=== PATIENT | female | born 1990 | race Two or more races ===

== ENCOUNTER 2019-04-15 17:20 | Inpatient (IN) | payer MEDICAID ==
[~2019-04-15] VITALS: Ht 165.1 cm; Wt 58.7 kg
[2019-04-15 17:30] VITALS: BP 122/76
[2019-04-15 17:48] LABS: HEMATOCRIT 38.7 % (37.0-47.0); HEMOGLOBIN 13.1 G/DL (12.0-16.0); MEAN CORPUSCULAR VOLUME 85 FL (80-99); PLATELET COUNT 179 K/UL (150-450); RED BLOOD COUNT 4.56 M/UL (4.20-5.40); WHITE BLOOD COUNT 17.7 K/UL (4.8-10.8)
[2019-04-15 18:38] LABS: APPEARANCE,URINE SLIGHTLY CLOUDY; COLOR,URINE PALE YELLOW
[2019-04-15 18:39] LABS: BILIRUBIN, URINE NEGATIVE (NEGATIVE); GLUCOSE, URINE (UA) NEGATIVE (NEGATIVE); KETONES,URINE 2+ (NEGATIVE); LEUKOCYTE ESTERASE ,URINE 1+ (NEGATIVE); NITRITE,URINE NEGATIVE (NEGATIVE); PROTEIN,URINE NEGATIVE (NEGATIVE); UROBILINOGEN,URINE NORMAL MG/DL (0.0-1.0)
[2019-04-15] MEDS ORDERED: cefTRIAXone 1 GM in NS 55 ML IVPB ONE (19:00)
[2019-04-15] MEDS ORDERED: Morphine Sulfate 2mg/ml Inj(IV/IM USE ONLY) IVP ONE (19:00)
[2019-04-15 19:13] LABS: ANION GAP 12 mmol/L (5-15); BLOOD UREA NITROGEN 10 mg/dL (7-18); CARBON DIOXIDE 24 MMOL/L (21-32); CHLORIDE 102 MMOL/L (98-107); CREATININE 0.8 MG/DL (0.55-1.30); POTASSIUM 3.5 MMOL/L (3.5-5.1); SODIUM 138 MMOL/L (136-145)
[2019-04-15 19:18] LABS: ALANINE AMINOTRANSFERASE 14 U/L (12-78); ALBUMIN 3.9 G/DL (3.4-5.0); ALKALINE PHOSPHATASE 63 U/L (46-116); ASPARTATE AMINO TRANSFERASE 15 U/L (15-37); BILIRUBIN,TOTAL 0.4 MG/DL (0.2-1.0)
--- NOTE | 2019-04-15 19:57 | Diagnostic Imaging Report ---
Clinical Indication: Abdominal pain Technique: No oral contrast utilized, per emergency room physician request IV administration nonionic contrast. Venous phase spiral acquisition obtained through the abdomen and pelvis. Multiplanar reconstructions were generated. Total dose length product 241 mGycm. CTDIvol(s) 4 mGy. Dose reduction achieved using automated exposure control Comparison: none Findings: There is patchy heterogeneous attenuation of the right kidney, with multiple peripheral wedge-shaped areas of low-attenuation present. Left renal attenuation appears unremarkable. No renal or ureteral calculi, hydronephrosis, or hydroureter. The bladder is nondistended. Demonstrates equivocal minimal wall thickening. No definite renal parenchymal mass or cyst demonstrated, difficult to completely exclude on the right due to the heterogeneous parenchymal attenuation. The liver demonstrates a subcentimeter low-attenuation lesion in segment 7 which is too small to characterize, is otherwise unremarkable. The gallbladder, bile ducts, pancreas, spleen, adrenals are unremarkable. No retroperitoneal or mesenteric mass or adenopathy. Normal uterus and ovaries. No pelvic mass or adenopathy. The appendix is not definitely identified, but no findings to suggest acute appendicitis are evident. No evidence of colonic diverticulosis or diverticulitis. There is trace free pelvic fluid. No small bowel distention. Distal esophagus, stomach, duodenum are unremarkable. The included lung bases are clear. The bones are unremarkable. Impression: Patchy heterogeneous attenuation of the right kidney, highly suggestive of nephritis, in concordance with stated clinical history No other acute or significant abnormality This agrees with the preliminary interpretation provided overnight by [facility] teleradiology service. The CT scanner at [facility] is accredited by the [employer] and the scans are performed using protocols designed to limit radiation exposure to as low as reasonably achievable to attain images of sufficient resolution adequate for diagnostic evaluation.
[2019-04-15 20:15] VITALS: BP 117/70
[2019-04-15] MEDS ORDERED: Ciprofloxacin 500mg tab ORAL ONE (20:15)
[2019-04-15] MEDS ORDERED: metroNIDAZOLE 500mg tab ORAL ONE (20:15)
--- NOTE | 2019-04-15 21:13 | Emergency Room Report ---
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 Denies any urinary frequency and urgency. Denies blood in urine. Denies at this time. Denies diffuse abdominal pain. Has not taken medication for symptom relief. Vitals appear to be stable. CVA tenderness noted in right flank. Denies chest pain, shortness of breath, palpitation, headache and dizziness. Denies recent travel. Denies vaginal discharge. (Escobar Zhou) Allergies: Coded Allergies: No Known Allergies (Unverified , 04/15/19) Patient History Past Medical History: see triage record Past Surgical History: none Pertinent Family History: none Last Menstrual Period: 03/23/2019 Now: No Immunizations: UTD Reviewed Nursing Documentation: PMH: Agreed; PSxH: Agreed (Escobar Zhou) Nursing Documentation-PMH Past Medical History: No History, Except For (Escobar Zhou) Review of Systems All Other Systems: negative except mentioned in HPI (Escobar Zhou) Physical Exam Vital Signs Date Time Temp Pulse Resp B/P (MAP) Pulse Ox O2 Delivery O2 Flow Rate FiO2 04/15/19 17:26 99.0 113 20 122/76 (91) 100 Room Air Sp02 EP Interpretation: reviewed, normal General Appearance: alert, GCS 15, non-toxic, mild distress Head: normocephalic, atraumatic Eyes: bilateral eye normal inspection, bilateral eye PERRL ENT: hearing grossly normal, normal pharynx, no angioedema, normal voice Neck: full range of motion, supple/symm/no masses Respiratory: chest non-tender, lungs clear, normal breath sounds, no rhonchi, no wheezing, speaking full sentences Cardiovascular #1: regular rate, rhythm, no edema, no murmur, normal capillary refill Gastrointestinal: non tender, soft, no mass, no peritonitis, no bruit, non- distended, no guarding, no pulsatile mass, no rebound Rectal: deferred Genitourinary: CVA tenderness (R) Musculoskeletal: back normal, normal range of motion, no calf tenderness, gait/ station normal, non-tender Neurologic: alert, motor strength/tone normal, oriented x3, sensory intact, responsive, speech normal Psychiatric: judgement/insight normal, memory normal, mood/affect normal, no suicidal/homicidal ideation Skin: no rash Lymphatic: no adenopathy (Escobar Zhou) Medical Decision Making PA Attestation All my diagnosis and treatment plans were reviewed ad discussed with my supervising physician Dr. 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 Denies any urinary frequency and urgency. Denies blood in urine. Denies at this time. Denies diffuse abdominal pain. Has not taken medication for symptom relief. Vitals appear to be stable. CVA tenderness noted in right flank. Denies chest pain, shortness of breath, palpitation, headache and dizziness. Denies recent travel. Denies vaginal discharge. Ddx considered but are not limited to: UTI, pyelonephritis, urinary incontinence , prolapsed bladder Vital signs: are WNL, pt. is afebrile H&PE are most consistent with: Symptomatic pyelonephritis ORDERS: UA, urine cx, urine , CBC, CMP, CT abdomen pelvis with contrast ED INTERVENTIONS: NS bolus, Zofran, ceftriaxone, Toradol Patient was admitted with diagnosis of symptomatic pyelonephritis to under supervision of : Roberto Carlos pt stable at time of admission (Escobar Zhou) ER Course patient seen and evaluated by ALCIDES Zhou. I agree with her workup and assessment. patient will need admission. I endorsed patient to admitting physician. (Denilson Azevedo MD) CT/MRI/US Diagnostic Results CT/MRI/US Diagnostic Results : Imaging Test Ordered: CT abdomen pelvis with contrast Impression There is heterogeneous enhancement of the right kidney with a slightly striated nephrogram. Findings are worrisome for pyelonephritis. There are no drainable perinephric fluid collections. Ill-defined low-density areas seen within the renal parenchyma may reflect phlegmonous changes (there is no discrete intrarenal abscess at this time). There is no evidence of hydronephrosis. There is no evidence of small or large bowel obstruction. There is a normal appendix. There is no acute bony abnormality. (Escobar Zhou) Last Vital Signs Date Time Temp Pulse Resp B/P (MAP) Pulse Ox O2 Delivery O2 Flow Rate FiO2 04/15/19 19:30 99.0 04/15/19 17:30 100 20 122/76 100 Room Air (Escobar Zhou) Disposition: ADMITTED INPATIENT Condition: Stable Escobar Zhou Apr 15, 2019 21:13 Denilson Azevedo MD Apr 15, 2019 22:01
[2019-04-15 22:45] VITALS: BP 111/74
[2019-04-16] VITALS (7 sets, daily range): BP systolic 94–109; BP diastolic 55–73
[2019-04-16] MEDS ORDERED: Morphine Sulfate 2mg/ml Inj(IV/IM USE ONLY) IVP PRN (01:30)
[2019-04-16] MEDS: Morphine Sulfate 2mg/ml Inj(IV/IM USE ONLY) IVP PRN ×2 (09:38→16:21)
--- NOTE | 2019-04-16 15:08 | History & Physical ---
History of Present Illness General Reason for Hospitalization: General Complaint Present Illness Allergies: Coded Allergies: No Known Allergies (Unverified , 04/15/19) Medication History No Active Prescriptions or Reported Meds Patient History Healthcare decision maker Resuscitation status Full Code Advanced Directive on File No Review of Systems Review of Symptoms General ROS: no weight loss or fever Psychological ROS: no depression or mood changes, no memory loss Ophthalmic ROS: no visual changes or eye irritation ENT ROS: no nasal congestion, hearing loss, dizziness Allergy and Immunology ROS: no allergic symptoms or urticaria Hematological and Lymphatic ROS: no swollen glands, unusual bleeding or bruising Endocrine ROS: no polyuria, polydipsia, weight changes, temperature intolerance Respiratory ROS: no cough, shortness of breath, or wheezing Cardiovascular ROS: no chest pain or dyspnea on exertion Gastrointestinal ROS: denies abdominal pain, bright red blood in stool. Musculoskeletal ROS: no myalgias or arthralgias Neurological ROS: no TIA or stroke symptoms Dermatological ROS: no new or changing skin lesions, rashes or pruritis Physical Exam Physical Exam General appearance: alert, cooperative, no distress, appears stated age Head: Normocephalic, without obvious abnormality, atraumatic Eyes: conjunctivae/corneas clear. PERRL, EOM's intact. Fundi benign Throat: Lips, mucosa, and tongue normal. Teeth and gums normal Neck: supple, symmetrical, trachea midline, no adenopathy, thyroid: not enlarged, symmetric, no tenderness/mass/nodules, no carotid bruit and no JVD Lungs: clear to auscultation bilaterally Heart: regular rate and rhythm, S1, S2 normal, no murmur, click, rub or gallop Abdomen: soft, non-tender. Bowel sounds normal. No masses, no organomegaly Extremities: extremities normal, atraumatic, no cyanosis or edema Pulses: 2+ and symmetric Skin: Skin color, texture, turgor normal. No rashes or lesions Neurologic: Grossly normal Last 24 Hour Vital Signs Date Time Temp Pulse Resp B/P (MAP) Pulse Ox O2 Delivery O2 Flow Rate FiO2 04/16/19 12:00 99.2 93 18 109/73 (85) 100 04/16/19 09:00 Room Air 04/16/19 08:00 98.7 94 18 106/71 (83) 100 04/16/19 04:00 98.6 77 17 97/55 (69) 96 04/16/19 02:16 98.6 04/16/19 01:34 99.3 101 102/64 (77) 04/16/19 00:00 102.5 110 17 94/59 (71) 97 04/15/19 23:47 Room Air 04/15/19 23:20 98.4 92 16 111/74 99 Room Air 04/15/19 22:45 98.4 92 16 111/74 99 Room Air 04/15/19 20:15 98.4 96 16 117/70 100 Room Air 04/15/19 19:30 99.0 04/15/19 17:30 99.0 100 20 122/76 100 Room Air 04/15/19 17:30 113 20 Room Air 04/15/19 17:26 99.0 113 20 122/76 (91) 100 Room Air Intake and Output 04/15/19 04/16/19 19:00 07:00 # Voids 2 Laboratory Tests Test 04/15/19 17:25 04/15/19 17:33 Urine Color Pale yellow Urine Appearance Slightly cloudy Urine pH 7.0 (4.5-8.0) Urine Specific [place] 1.001 (1.005-1.035) Urine Protein Negative (NEGATIVE) Urine Glucose (UA) Negative (NEGATIVE) Urine Ketones 2+ (NEGATIVE) H Urine Blood 2+ (NEGATIVE) H Urine Nitrite Negative (NEGATIVE) Urine Bilirubin Negative (NEGATIVE) Urine Urobilinogen Normal MG/DL (0.0-1.0) Urine Leukocyte Esterase 1+ (NEGATIVE) H Urine RBC 5-10 /HPF (0 - 2) H Urine WBC 10-15 /HPF (0 - 2) H Urine Squamous Epithelial Cells Moderate /LPF (NONE/OCC) H Urine Bacteria Few /HPF (NONE) Urine HCG, Qualitative Negative (NEGATIVE) Lactic Acid Level 0.70 mmol/L (0.4-2.0) White Blood Count 17.7 K/UL (4.8-10.8) H Red Blood Count 4.56 M/UL (4.20-5.40) Hemoglobin 13.1 G/DL (12.0-16.0) Hematocrit 38.7 % (37.0-47.0) Mean Corpuscular Volume 85 FL (80-99) Mean Corpuscular Hemoglobin 28.8 PG (27.0-31.0) Mean Corpuscular Hemoglobin Concent 34.0 G/DL (32.0-36.0) Red Cell Distribution Width 12.0 % (11.6-14.8) Platelet Count 179 K/UL (150-450) Mean Platelet Volume 8.6 FL (6.5-10.1) Neutrophils (%) (Auto) % (45.0-75.0) Lymphocytes (%) (Auto) % (20.0-45.0) Monocytes (%) (Auto) % (1.0-10.0) Eosinophils (%) (Auto) % (0.0-3.0) Basophils (%) (Auto) % (0.0-2.0) Differential Total Cells Counted 100 Neutrophils % (Manual) 88 % (45-75) H Lymphocytes % (Manual) 7 % (20-45) L Monocytes % (Manual) 4 % (1-10) Eosinophils % (Manual) 1 % (0-3) Basophils % (Manual) 0 % (0-2) Band Neutrophils 0 % (0-8) Platelet Estimate Adequate Platelet Morphology Normal Red Blood Cell Morphology Normal Sodium Level 138 MMOL/L (136-145) Potassium Level 3.5 MMOL/L (3.5-5.1) Chloride Level 102 MMOL/L (98-107) Carbon Dioxide Level 24 MMOL/L (21-32) Anion Gap 12 mmol/L (5-15) Blood Urea Nitrogen 10 mg/dL (7-18) Creatinine 0.8 MG/DL (0.55-1.30) Estimat Glomerular Filtration Rate > 60 mL/min (>60) Glucose Level 111 MG/DL (74-106) H Calcium Level 9.0 MG/DL (8.5-10.1) Total Bilirubin 0.4 MG/DL (0.2-1.0) Aspartate Amino Transf (AST/SGOT) 15 U/L (15-37) Alanine Aminotransferase (ALT/SGPT) 14 U/L (12-78) Alkaline Phosphatase 63 U/L (46-116) Total Protein 7.8 G/DL (6.4-8.2) Albumin 3.9 G/DL (3.4-5.0) Globulin 3.9 g/dL Albumin/Globulin Ratio 1.0 (1.0-2.7) Microbiology Date/Time Source Procedure Growth Status 2/18/20 17:25 Urine,Clean Catch Urine Culture - Preliminary Resulted Height (Feet): 5 Height (Inches): 5.00 Weight (Pounds): 129 Medications Current Medications Medications (Trade) Dose Ordered Sig/Hussain Route PRN Reason Start Time Stop Time Status Last Admin Dose Admin Acetaminophen (Tylenol) 650 mg Q4H PRN ORAL Mild Pain/Temp > 100.5 04/16/19 01:30 05/16/19 01:29 04/16/19 01:46 Ceftriaxone Sodium 1 gm/ Dextrose 55 ml @ 110 mls/hr Q24H IVPB 04/16/19 16:00 04/23/19 15:59 Morphine Sulfate (Morphine Sulfate) 2 mg Q6H PRN IVP For Pain 04/16/19 09:30 04/23/19 01:29 04/16/19 09:38 Ondansetron HCl (Zofran) 4 mg Q6H PRN IVP Nausea & Vomiting 04/16/19 01:30 05/16/19 01:29 04/16/19 01:46 Sodium Chloride 1,000 ml @ 70 mls/hr [id number] IV 04/16/19 01:00 05/16/19 00:59 04/16/19 01:00 Assessment/Plan Assessment/Plan: IM H&P Covering MD: Robyn Guevara RFA: Pyelonephritis DOS: 04/16/19 HPI 29-year-old female with 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 Denies any urinary frequency and urgency. Denies blood in urine. Denies at this time. Denies diffuse abdominal pain. Has not taken medication for symptom relief. Vitals appear to be stable. CVA tenderness noted in right flank. Denies chest pain, shortness of breath, palpitation, headache and dizziness. Denies recent travel. Denies vaginal discharge. Allergies: Coded Allergies: No Known Allergies (Unverified , 04/15/19) Patient History Past Medical History: see triage record Past Surgical History: none Pertinent Family History: none Last Menstrual Period: 03/23/2019 Now: No Immunizations: UTD Reviewed Nursing Documentation: PMH: Agreed; PSxH: Agreed ROS (review of systems): Constitutional: No fever, no chills, no night sweats, no fatigue Skin: No rashes, lumps, itchiness, dryness HEENT: No ELL[place], ear ache, visual changes, double vision, nosebleeds Breasts: No lumps, pain, discharge Pulmonary: No cough, sputum, shortness of breath, coughing up blood Cardiovascular: No chest pain, tightness, palpitations, syncope, PND GI: No nausea, vomiting, diarrhea, melena, hematochezia, change in appetite, : No dysuria, frequency, urgency, urinary incontinence, foamy urine Musculoskeletal: No joint swelling or muscle pain, trauma, back pain Neurologic: No dizziness, fainting, seizures, changes in smell or taste Psychiatric: No nervousness, stress, or depression, anxiety, hallucinations Endocrine: No weight change, heat or cold intolerance, tremor, insomnia Physical Exam: Vitals: reviewed General: NAD HEENT: nc, at Neck: supple Chest: clear breath sounds bilaterally Cardiovascular: RRR, no s3, s4 Abdomen: soft, nontender, nd Extremities: no cce, normal range of motion Neuro: alert and oriented Right flank pain++ Labs: noted Imaging: reviewed A/R # Pyelonephritis symptomatic --> as per id, abx # Leukocytosis likely due to infection --> on ivf and abx # Sepsis hx with recent hospitalization 1 year ago here complaining of 3 days of right flank pain, fever and chills, nausea. Denies any urinary frequency and urgen --> as per id care, on ivf as well # Dehydration --> goal of euvolemia The timing of this note does not necessarily reflect the time of the patient was seen. MIPS Hospital declaration INPATIENT level of care is warranted for this patient because patient is a 89 year old with who presents with suspicion of . I have a high level of concern because . Patient is at high risk for . Plan of care/treatment include . Patient care is expected to be greater than 2 midnights. OBSERVATION level of care is warranted for this patient. Patient is a 89 year old with who presents with . Patient will be admitted for 1 midnight, but if additional night(s) is/are necessary, patient will be converted to inpatient status for the entire hospitalization Disposition: Once the patient is stable to leave the hospital, I anticipate the patient will likely be discharged to the following environment: Estimated discharge date: I spent 70 minutes on this patient's case, and minutes was dedicated to counseling and/or care coordination. MIPS (Merit-based Incentive Payment System) Applicable CPT: 48663, 76267 CHECK ALL THAT ARE MET: Measure #5 (CHF): All ages. Prescribe SABINE/ARB upon discharge for patients with left ventricular systolic dysfunction. If not, the reason is clearly documented in the medical chart. Measure #8 (CHF): All ages. Prescribe a beta [place] upon discharge for patients with left ventricular systolic dysfunction. If not, the reason is clearly documented in the medical chart. Measure #47 Advance care plan or surrogate decision maker documented in the medical record. Measure #130 The provider has documented, updated, or reviewed the patients current medication list and has documented it in the patients note. Measure #374 (All): Send report to referring provider. Measure #407(Sepsis due to MSSA bacteremia): Age 18+ Patient treated with a beta-lactam antibiotic (Nafcillin, Oxacillin or Cefazolin) as definitive therapy. MEDICAL COMPLEXITY High complexity medical decision making (need 2/3 categories) Problem - need 4 points Acute/new problem with new plan for workup (4 points, 1 max) Acute/new problem without additional workup (3 points, 1 max) Unstable chronic problem actively being managed (2 point each, 2 max) Stable chronic problem actively being managed (1 point each, 2 max) Self-limited/transient process (constipation, muscle ache, etc) (1 point each , 2 max) Data - need 4 points Reviewed labs/imaging studies (1 points, 2 max) Independent review of imaging (EKG, xrays, etc) (2 points, 2 max) Discussed case with consult/other MD/RN (2 points, 2 max) High Risk - qualify if have one of the following: Severe exacerbation of acute problem, acute mental status change, IV narcotics , monitoring drug levels (vancomycin, INR, tacrolimus etc) Jon Strong MD Apr 16, 2019 15:08
[2019-04-16] MEDS: cefTRIAXone 1 GM in D5W 55 ML IVPB SCH (16:20)
--- NOTE | 2019-04-16 21:45 | Consultation ---
DATE OF CONSULTATION: 04/16/2019 INFECTIOUS DISEASE CONSULTATION CONSULTING PHYSICIAN: Dada Mahoney M.D. PRIMARY ATTENDING PHYSICIAN: Robyn Zamora M.D. REASON FOR CONSULTATION: Pyelonephritis and sepsis. HISTORY OF PRESENT ILLNESS: This is a 29-year-old female admitted yesterday from home complaining of fever, chills, and right flank pain for 3 days. The patient had history of pyelonephritis one year ago. The patient was found to have fever of 102.5 in the hospital and had leukocytosis of 17.7. MEDICATIONS: Getting morphine, ciprofloxacin, Tylenol, and Zofran. Got a dose of ceftriaxone and sodium chloride. ALLERGIES: No known drug allergies. SOCIAL HISTORY: Single. Has a 4-year-old boy. Social drinking. No drug abuse. Nonsmoker. REVIEW OF SYSTEMS: As history of present illness, fever, chills and right flank pain. Has no coughing and no lower urinary symptoms. PHYSICAL EXAMINATION: VITAL SIGNS: Temperature 99.2, pulse 93, and blood pressure 109/73. GENERAL APPEARANCE: No acute distress. HEAD AND NECK: [place] conjunctiva. HEART: Normal rate. LUNGS: Clear. ABDOMEN: Soft. Right flank tenderness. EXTREMITIES: No edema. NEUROLOGIC: Awake, alert, and oriented x3. LABORATORY AND DIAGNOSTIC DATA: WBC 17.7, hemoglobin 13.1, hematocrit 38.7, and platelets is 179,000. Sodium 138, potassium 3.5, chloride 102, bicarbonate 24, BUN 10, creatinine 0.8, and glucose is 111. Normal LFT. UA showed leukocyte esterase 1+ and wbc [address] scan of the abdomen and pelvis showed patchy heterogenous attenuation of right kidney highly suggestive of nephritis. IMPRESSION: 1. Sepsis with leukocytosis, fever, and brief tachycardia. 2. Pyelonephritis. RECOMMENDATIONS: Discontinue Cipro and start on ceftriaxone. We will follow up the cultures. At the end of my exam, I thank Dr. Zamora for involving me in the care of this patient. Dada Mahoney M.D. DR: TRI JOB#: [id number] CC:
[2019-04-17] VITALS: BP 102/66
[2019-04-17 04:00] VITALS: BP 103/60
[2019-04-17 06:41] LABS: BASOPHILS % (AUTO) 0.2 % (0.0-2.0); EOSINOPHILS % (AUTO) 0.5 % (0.0-3.0); HEMATOCRIT 32.5 % (37.0-47.0); HEMOGLOBIN 11.3 G/DL (12.0-16.0); LYMPHOCYTES % (AUTO) 10.9 % (20.0-45.0); MEAN CORPUSCULAR VOLUME 86 FL (80-99); MONOCYTES % (AUTO) 7.7 % (1.0-10.0); NEUTROPHILS % (AUTO) 80.6 % (45.0-75.0); PLATELET COUNT 154 K/UL (150-450); RED CELL DISTRIBUTION WIDTH 12.2 % (11.6-14.8); WHITE BLOOD COUNT 13.9 K/UL (4.8-10.8)
[2019-04-17 06:58] LABS: ANION GAP 11 mmol/L (5-15); BLOOD UREA NITROGEN 8 mg/dL (7-18); CALCIUM 8.3 MG/DL (8.5-10.1); CARBON DIOXIDE 25 MMOL/L (21-32); CHLORIDE 105 MMOL/L (98-107); CREATININE 0.9 MG/DL (0.55-1.30); POTASSIUM 3.7 MMOL/L (3.5-5.1); SODIUM 141 MMOL/L (136-145)
[2019-04-17 08:00] VITALS: BP 107/62
--- NOTE | 2019-04-17 10:46 | Infectious Diseases Prog Note ---
Assessment/Plan Assessment/Plan IMPRESSION: 1. Sepsis,improving leukocytosis 2. Pyelonephritis. RECOMMENDATIONS: continue Ceftriaxone. We will follow up the cultures. Subjective ROS Limited/Unobtainable: No Constitutional: Reports: fever, other - feels better Respiratory: Reports: no symptoms Gastrointestinal/Abdominal: Reports: no symptoms Genitourinary: Reports: other - R flank pain decreased Neurologic: Reports: no symptoms Allergies: Coded Allergies: No Known Allergies (Unverified , 04/15/19) Objective Vital Signs Last 24 Hour Vital Signs Date Time Temp Pulse Resp B/P (MAP) Pulse Ox O2 Delivery O2 Flow Rate FiO2 04/17/19 04:59 98.0 04/17/19 04:00 100.6 91 18 103/60 (74) 99 04/17/19 00:00 98.9 82 18 102/66 (78) 98 04/16/19 21:00 Room Air 04/16/19 20:00 99.0 81 18 100/65 (77) 97 04/16/19 16:00 101.4 107 18 105/64 (78) 96 04/16/19 12:00 99.2 93 18 109/73 (85) 100 Height (Feet): 5 Height (Inches): 5.00 Weight (Pounds): 129 General Appearance: no acute distress HEENT: mucous membranes moist Respiratory/Chest: lungs clear Cardiovascular: normal rate Abdomen: other - solf R costovertebral beni tenderness Extremities: no edema Neurologic/Psychiatric: alert, oriented x 3, responsive Microbiology Date/Time Source Procedure Growth Status 04/15/19 17:25 Urine,Clean Catch Urine Culture - Preliminary Gram Negative Bacillus 1 Resulted Laboratory Tests Test 04/17/19 05:40 White Blood Count 13.9 K/UL (4.8-10.8) H Red Blood Count 3.80 M/UL (4.20-5.40) L Hemoglobin 11.3 G/DL (12.0-16.0) L Hematocrit 32.5 % (37.0-47.0) L Mean Corpuscular Volume 86 FL (80-99) Mean Corpuscular Hemoglobin 29.6 PG (27.0-31.0) Mean Corpuscular Hemoglobin Concent 34.6 G/DL (32.0-36.0) Red Cell Distribution Width 12.2 % (11.6-14.8) Platelet Count 154 K/UL (150-450) Mean Platelet Volume 9.0 FL (6.5-10.1) Neutrophils (%) (Auto) 80.6 % (45.0-75.0) H Lymphocytes (%) (Auto) 10.9 % (20.0-45.0) L Monocytes (%) (Auto) 7.7 % (1.0-10.0) Eosinophils (%) (Auto) 0.5 % (0.0-3.0) Basophils (%) (Auto) 0.2 % (0.0-2.0) Sodium Level 141 MMOL/L (136-145) Potassium Level 3.7 MMOL/L (3.5-5.1) Chloride Level 105 MMOL/L (98-107) Carbon Dioxide Level 25 MMOL/L (21-32) Anion Gap 11 mmol/L (5-15) Blood Urea Nitrogen 8 mg/dL (7-18) Creatinine 0.9 MG/DL (0.55-1.30) Estimat Glomerular Filtration Rate > 60 mL/min (>60) Glucose Level 146 MG/DL (74-106) H Calcium Level 8.3 MG/DL (8.5-10.1) L Current Medications Medications (Trade) Dose Ordered Sig/Hussain Route PRN Reason Start Time Stop Time Status Last Admin Dose Admin Acetaminophen (Tylenol) 650 mg Q4H PRN ORAL Mild Pain/Temp > 100.5 04/16/19 01:30 05/16/19 01:29 04/17/19 04:29 Ceftriaxone Sodium 1 gm/ Dextrose 55 ml @ 110 mls/hr Q24H IVPB 04/16/19 16:00 04/23/19 15:59 04/16/19 16:20 Morphine Sulfate (Morphine Sulfate) 2 mg Q6H PRN IVP For Pain 04/16/19 09:30 04/23/19 01:29 04/16/19 16:21 Ondansetron HCl (Zofran) 4 mg Q6H PRN IVP Nausea & Vomiting 04/16/19 01:30 05/16/19 01:29 04/16/19 01:46 Sodium Chloride 1,000 ml @ 70 mls/hr [id number] IV 04/16/19 01:00 05/16/19 00:59 04/17/19 04:29 Dada Mahoney MD Apr 17, 2019 10:46
--- NOTE | 2019-04-17 11:01 | General Progress Note ---
Assessment/Plan Status: stable Assessment/Plan: IM Progress Note Covering MD: Robyn Guevara A/R # Pyelonephritis symptomatic --> as per id, abx # Leukocytosis likely due to infection --> on ivf and abx --> wbc trend; 13.9 --> abx: ceftriaxone # Sepsis hx with recent hospitalization 1 year ago here complaining of 3 days of right flank pain, fever and chills, nausea. Denies any urinary frequency and urgen --> as per id care, on ivf as well # Dehydration --> goal of euvolemia The timing of this note does not necessarily reflect the time of the patient was seen. Subjective Allergies: Coded Allergies: No Known Allergies (Unverified , 04/15/19) Subjective 04/17: med surg, eating breakfast, no overnight events, temp 100.3 Objective Last 24 Hour Vital Signs Date Time Temp Pulse Resp B/P (MAP) Pulse Ox O2 Delivery O2 Flow Rate FiO2 04/17/19 04:59 98.0 04/17/19 04:00 100.6 91 18 103/60 (74) 99 04/17/19 00:00 98.9 82 18 102/66 (78) 98 04/16/19 21:00 Room Air 04/16/19 20:00 99.0 81 18 100/65 (77) 97 04/16/19 16:00 101.4 107 18 105/64 (78) 96 04/16/19 12:00 99.2 93 18 109/73 (85) 100 Intake and Output 04/16/19 04/17/19 19:00 07:00 Intake Total 1420 ml 1070 ml Balance 1420 ml 1070 ml Intake Oral 500 ml 300 ml IV Total 920 ml 770 ml # Voids 2 1 Laboratory Tests 04/17/19 05:40: White Blood Count 13.9H, Red Blood Count 3.80L, Hemoglobin 11.3L, Hematocrit 32.5L, Mean Corpuscular Volume 86, Mean Corpuscular Hemoglobin 29.6, Mean Corpuscular Hemoglobin Concent 34.6, Red Cell Distribution Width 12.2, Platelet Count 154, Mean Platelet Volume 9.0, Neutrophils (%) (Auto) 80.6H, Lymphocytes ( %) (Auto) 10.9L, Monocytes (%) (Auto) 7.7, Eosinophils (%) (Auto) 0.5, Basophils (%) (Auto) 0.2, Sodium Level 141, Potassium Level 3.7, Chloride Level 105, Carbon Dioxide Level 25, Anion Gap 11, Blood Urea Nitrogen 8, Creatinine 0.9, Estimat Glomerular Filtration Rate > 60, Glucose Level 146H, Calcium Level 8.3L Height (Feet): 5 Height (Inches): 5.00 Weight (Pounds): 129 Objective Physical Exam: Vitals: reviewed General: NAD HEENT: nc, at Neck: supple Chest: clear breath sounds bilaterally Cardiovascular: RRR, no s3, s4 Abdomen: soft, nontender, nd Extremities: no cce, normal range of motion Neuro: alert and oriented Right flank pain++ Jon Strong MD Apr 17, 2019 11:01
[2019-04-17 12:00] VITALS: BP 99/66
[2019-04-17 16:00] VITALS: BP 99/66
[2019-04-17] MEDS: cefTRIAXone 1 GM in D5W 55 ML IVPB SCH (16:48)
[2019-04-17 20:00] VITALS: BP 98/59
[2019-04-18] VITALS: BP 100/66
[2019-04-18 04:00] VITALS: BP 93/55
[2019-04-18 07:15] LABS: BASOPHILS % (AUTO) 0.3 % (0.0-2.0); HEMATOCRIT 33.5 % (37.0-47.0); HEMOGLOBIN 11.5 G/DL (12.0-16.0); MEAN CORPUSCULAR VOLUME 85 FL (80-99); MONOCYTES % (AUTO) 7.2 % (1.0-10.0); NEUTROPHILS % (AUTO) 75.6 % (45.0-75.0); PLATELET COUNT 168 K/UL (150-450); RED BLOOD COUNT 3.93 M/UL (4.20-5.40); RED CELL DISTRIBUTION WIDTH 12.1 % (11.6-14.8); WHITE BLOOD COUNT 9.5 K/UL (4.8-10.8)
[2019-04-18 07:53] LABS: ANION GAP 14 mmol/L (5-15); BLOOD UREA NITROGEN 8 mg/dL (7-18); CALCIUM 8.5 MG/DL (8.5-10.1); CARBON DIOXIDE 20 MMOL/L (21-32); CHLORIDE 109 MMOL/L (98-107); CREATININE 0.7 MG/DL (0.55-1.30); POTASSIUM 3.7 MMOL/L (3.5-5.1); SODIUM 143 MMOL/L (136-145)
[2019-04-18 08:00] VITALS: BP 102/71
[2019-04-18] MEDS ORDERED: Sennosides 8.6mg tab ORAL STA (11:20)
[2019-04-18] MEDS ORDERED: Docusate 100mg cap ORAL STA (11:26)
[2019-04-18] MEDS ORDERED: Sennosides 8.6mg tab ORAL PRN (11:30)
[2019-04-18 12:00] VITALS: BP 108/67
--- NOTE | 2019-04-18 12:08 | Infectious Diseases Prog Note ---
Assessment/Plan Assessment/Plan IMPRESSION: 1. Sepsis,resolved fever & leukocytosis 2. Pyelonephritis. RECOMMENDATIONS: can be discharged to home with PO Levaquin X 7days Subjective ROS Limited/Unobtainable: No Constitutional: Reports: no symptoms Respiratory: Reports: no symptoms Cardiovascular: Reports: no symptoms Gastrointestinal/Abdominal: Reports: no symptoms Genitourinary: Reports: no symptoms Allergies: Coded Allergies: No Known Allergies (Unverified , 04/15/19) Objective Vital Signs Last 24 Hour Vital Signs Date Time Temp Pulse Resp B/P (MAP) Pulse Ox O2 Delivery O2 Flow Rate FiO2 04/18/19 09:00 Room Air 04/18/19 08:00 98.7 66 16 102/71 (81) 100 04/18/19 04:00 97.5 66 17 93/55 (68) 97 04/18/19 00:00 98.1 73 17 100/66 (77) 98 04/17/19 21:00 Room Air 04/17/19 20:00 98.4 73 18 98/59 (72) 97 04/17/19 16:00 98.1 77 18 99/66 (77) Height (Feet): 5 Height (Inches): 5.00 Weight (Pounds): 129 General Appearance: no acute distress HEENT: mucous membranes moist Respiratory/Chest: lungs clear Cardiovascular: normal rate Abdomen: soft, non tender Extremities: no edema Neurologic/Psychiatric: alert, oriented x 3, responsive Microbiology Date/Time Source Procedure Growth Status 04/16/19 07:55 Blood Blood Culture - Preliminary NO GROWTH AFTER 24 HOURS Resulted 04/16/19 07:45 Blood Blood Culture - Preliminary NO GROWTH AFTER 24 HOURS Resulted 04/15/19 17:25 Urine,Clean Catch Urine Culture - Final Escherichia Coli Complete Laboratory Tests Test 04/18/19 05:45 White Blood Count 9.5 K/UL (4.8-10.8) Red Blood Count 3.93 M/UL (4.20-5.40) L Hemoglobin 11.5 G/DL (12.0-16.0) L Hematocrit 33.5 % (37.0-47.0) L Mean Corpuscular Volume 85 FL (80-99) Mean Corpuscular Hemoglobin 29.2 PG (27.0-31.0) Mean Corpuscular Hemoglobin Concent 34.2 G/DL (32.0-36.0) Red Cell Distribution Width 12.1 % (11.6-14.8) Platelet Count 168 K/UL (150-450) Mean Platelet Volume 9.0 FL (6.5-10.1) Neutrophils (%) (Auto) 75.6 % (45.0-75.0) H Lymphocytes (%) (Auto) 16.0 % (20.0-45.0) L Monocytes (%) (Auto) 7.2 % (1.0-10.0) Eosinophils (%) (Auto) 1.0 % (0.0-3.0) Basophils (%) (Auto) 0.3 % (0.0-2.0) Sodium Level 143 MMOL/L (136-145) Potassium Level 3.7 MMOL/L (3.5-5.1) Chloride Level 109 MMOL/L (98-107) H Carbon Dioxide Level 20 MMOL/L (21-32) L Anion Gap 14 mmol/L (5-15) Blood Urea Nitrogen 8 mg/dL (7-18) Creatinine 0.7 MG/DL (0.55-1.30) Estimat Glomerular Filtration Rate > 60 mL/min (>60) Glucose Level 87 MG/DL (74-106) Calcium Level 8.5 MG/DL (8.5-10.1) Current Medications Medications (Trade) Dose Ordered Sig/Hussain Route PRN Reason Start Time Stop Time Status Last Admin Dose Admin Acetaminophen (Tylenol) 650 mg Q4H PRN ORAL Mild Pain/Temp > 100.5 04/16/19 01:30 05/16/19 01:29 04/18/19 05:14 Ceftriaxone Sodium 1 gm/ Dextrose 55 ml @ 110 mls/hr Q24H IVPB 04/16/19 16:00 04/23/19 15:59 04/17/19 16:48 Docusate Sodium (Colace) 100 mg TWICE A DAY ORAL 04/18/19 18:00 05/18/19 17:59 Morphine Sulfate (Morphine Sulfate) 2 mg Q6H PRN IVP For Pain 04/16/19 09:30 04/23/19 01:29 04/16/19 16:21 Ondansetron HCl (Zofran) 4 mg Q6H PRN IVP Nausea & Vomiting 04/16/19 01:30 05/16/19 01:29 04/16/19 01:46 Sennosides (Senokot) 8.6 mg DAILY PRN ORAL Constipation 04/18/19 11:30 05/18/19 11:29 Sodium Chloride 1,000 ml @ 70 mls/hr [id number] IV 04/16/19 01:00 05/16/19 00:59 04/18/19 07:43 Dada Mahoney MD Apr 18, 2019 12:08
[2019-04-18] MEDS ORDERED: LEVAQUIN750 MG ORAL (14:44)
[2019-04-18] MEDS: cefTRIAXone 1 GM in D5W 55 ML IVPB SCH (15:58)
--- NOTE | 2019-04-18 16:32 | General Progress Note ---
Assessment/Plan Status: stable Assessment/Plan: IM Progress Note Covering MD: Robyn Guevara A/R # Pyelonephritis symptomatic --> as per id, abx # Leukocytosis likely due to infection --> on ivf and abx --> wbc trend; 13.9 --> abx: ceftriaxone # Sepsis hx with recent hospitalization 1 year ago here complaining of 3 days of right flank pain, fever and chills, nausea. Denies any urinary frequency and urgen --> as per id care, on ivf as well # Dehydration --> goal of euvolemia The timing of this note does not necessarily reflect the time of the patient was seen. Subjective Constitutional: Denies: no symptoms, chills, diaphoresis, fever, malaise, weakness, other Cardiovascular: Denies: no symptoms, chest pain, edema, irregular heart rate, lightheadedness, palpitations, syncope, other Respiratory: Denies: no symptoms, cough, orthopnea, shortness of breath, SOB with excertion, SOB at rest, sputum, stridor, wheezing, other Gastrointestinal/Abdominal: Denies: no symptoms, abdomen distended, abdominal pain, black stools, tarry stools, blood in stool, constipated, diarrhea, difficulty swallowing, nausea, poor appetite, poor fluid intake, rectal bleeding , vomiting, other Genitourinary: Denies: no symptoms, burning, discharge, frequency, flank pain, hematuria, incontinence, pain, urgency, other Neurologic/Psychiatric: Denies: no symptoms, anxiety, depressed, emotional problems, headache, numbness, paresthesia, pre-existing deficit, seizure, tingling, tremors, weakness, other Endocrine: Denies: no symptoms, excessive sweating, flushing, intolerance to cold, intolerance to heat, increased hunger, increased thirst, increased urine, unexplained weight gain, unexplained weight loss, other Hematologic/Lymphatic: Denies: no symptoms, anemia, easy bleeding, easy bruising, other Allergies: Coded Allergies: No Known Allergies (Unverified , 04/15/19) Subjective 04/17: med surg, eating breakfast, no overnight events, temp 100.3 04/18: feeling better, potential dc after sees id, no bleeding, less dysuria Objective Last 24 Hour Vital Signs Date Time Temp Pulse Resp B/P (MAP) Pulse Ox O2 Delivery O2 Flow Rate FiO2 04/18/19 12:00 98.0 72 20 108/67 (81) 98 04/18/19 09:00 Room Air 04/18/19 08:00 98.7 66 16 102/71 (81) 100 04/18/19 04:00 97.5 66 17 93/55 (68) 97 04/18/19 00:00 98.1 73 17 100/66 (77) 98 04/17/19 21:00 Room Air 04/17/19 20:00 98.4 73 18 98/59 (72) 97 Intake and Output 04/17/19 04/18/19 19:00 07:00 Intake Total 1600 ml 1010 ml Balance 1600 ml 1010 ml Intake Oral 240 ml IV Total 770 ml Other 1600 ml # Voids 1 Laboratory Tests 04/18/19 05:45: White Blood Count 9.5, Red Blood Count 3.93L, Hemoglobin 11.5L, Hematocrit 33.5L , Mean Corpuscular Volume 85, Mean Corpuscular Hemoglobin 29.2, Mean Corpuscular Hemoglobin Concent 34.2, Red Cell Distribution Width 12.1, Platelet Count 168, Mean Platelet Volume 9.0, Neutrophils (%) (Auto) 75.6H, Lymphocytes ( %) (Auto) 16.0L, Monocytes (%) (Auto) 7.2, Eosinophils (%) (Auto) 1.0, Basophils (%) (Auto) 0.3, Sodium Level 143, Potassium Level 3.7, Chloride Level 109H, Carbon Dioxide Level 20L, Anion Gap 14, Blood Urea Nitrogen 8, Creatinine 0.7, Estimat Glomerular Filtration Rate > 60, Glucose Level 87, Calcium Level 8.5 Height (Feet): 5 Height (Inches): 5.00 Weight (Pounds): 129 Objective Physical Exam: Vitals: reviewed General: NAD HEENT: nc, at Neck: supple Chest: clear breath sounds bilaterally Cardiovascular: RRR, no s3, s4 Abdomen: soft, nontender, nd Extremities: no cce, normal range of motion Neuro: alert and oriented Right flank pain++ Jon Strong MD Apr 18, 2019 16:32
[2019-04-18] MEDS ORDERED: Tubing IV Secondary IV ONE (16:59)
[2019-04-18] MEDS ORDERED: Docusate 100mg cap ORAL SCH (18:00)
--- NOTE | 2019-04-20 11:41 | Discharge Summary ---
Discharge Summary Discharge Summary _ DATE OF ADMISSION: 04/15/2019 DATE OF DISCHARGE: 04/18/2019 DISCHARGED BY: Dr. Jon Strong CONSULTANTS: Dr. 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 She denied urinary frequency and urgency. Denied blood in the urine. She had diffuse abdominal pain and has not taken any medication for symptom relief. She denied chest pain, shortness of breath, palpitations, headache and dizziness. Denied any recent travel. Denied vaginal discharge. Upon evaluation at the ED, blood pressure was normal. She was tachycardic. WBC was elevated to 17.7 with neutrophil predominance. Hemoglobin and hematocrit were stable. Electrolytes normal. Urinalysis with +1 leukocyte esterase, 5-10 urine RBC, 10-[address]BC. UCG negative. CT scan of the abdomen and pelvis showed patchy attenuation of the right kidney, suggestive of nephritis. She was then admitted for acute pyelonephritis. She was given IV hydration. She was initially started ciprofloxacin. ID consulted. Ciprofloxacin discontinued and was given Rocephin pending culture results. Urine culture showed growth of ESBL E. coli. Blood culture did not isolate any growth. Leukocytosis resolved. She was cleared for discharge home to continue p.o. levofloxacin. FINAL DIAGNOSES: Symptomatic pyelonephritis Leukocytosis due to infection History of sepsis Dehydration DISPOSITION: Patient was discharged home. DISCHARGE MEDICATIONS: Refer to Discharge Medication List. DISCHARGE INSTRUCTIONS: Follow-up in a week. I have been assigned to complete a discharge summary on this account, I was not involved with the patient's management.--KEN Ivy Jacqueline Robles NP Apr 20, 2019 11:41
== END 2019-04-18 17:00 | disposition home or self-care (01) | DRG 463 ==
LOC: EMR 20:05 → 3E 21:45 → EDBEDREQ 22:29
DX: N12 Tubulo-interstitial nephritis, not specified as acute or chronic (principal); Z16.12 Extended spectrum beta lactamase (ESBL) resistance; B96.20 Unspecified Escherichia coli [E. coli] as the cause of diseases classified elsewhere; E86.0 Dehydration
CPT/HCPCS: 36415; 74177; 80048; 80053; 81003; 81025; 83605; 85007; 85025; 87040; 87086; 87181; 96361; 96365; 96375; 99285; J2405; J7030